=== PATIENT | male | born 1985 | race Caucasian/White ===

== ENCOUNTER 2024-03-04 20:00 | Outpatient (CLI) | payer OTHER, SELFPAY | END 2024-03-04 20:01 | disposition home or self-care (01) | LOC: SLEEP 22:23 | PROVIDERS: Family Provider Internal Medicine; Visit Provider Family Medicine | DX: R06.83 Snoring (principal); R53.83 Other fatigue | CPT/HCPCS: 95810 ==

== ENCOUNTER 2024-08-25 09:27 | Outpatient (CLI) | payer OTHER, SELFPAY ==
--- NOTE | 2024-08-25 08:00 | MR_ITS ---
WS: [id number] MRI LEFT KNEE NONCONTRAST TECHNIQUE: Axial PD, coronal PD fat sat, coronal PD, sagittal PD, and sagittal PD fat-sat images obtained. CLINICAL INFORMATION: INTERNAL DERANGEMENT, KNEE, LEFT COMPARISON: None. FINDINGS: Distal quadriceps and patella tendons are intact. Normal ACL and PCL. Medial and lateral meniscus appear intact. No acute appearing meniscal tears. No significant joint effusion. Fibular head is normal in appearance. Normal bone marrow signal in the femoral condyles and tibial plateau. Normal popliteal fossa. Normal medial and lateral collateral ligaments. Normal popliteus. No other remarkable findings. MR/MR knee LT wo con* [id number] IMPRESSION: 1. ACL and PCL appear intact. 2. Normal patella. 3. No acute appearing meniscal tears. 4. Medial and lateral collateral ligaments appear intact. 5. No other acute findings. Outbridge grading: grade I: focal areas of hyperintensity with normal contour
== END 2024-08-25 09:28 | disposition home or self-care (01) ==
LOC: RAD 09:29
PROVIDERS: Family Provider Internal Medicine; Visit Provider Orthopaedic Surgery
DX: M25.562 Pain in left knee (principal)
CPT/HCPCS: 73721

== ENCOUNTER → 2025-03-03 08:09 | Outpatient (BNVA) | payer OTHER, SELFPAY | PROVIDERS: Family Provider Internal Medicine; Referring Provider Nurse Practitioner Family; Visit Provider Nurse Practitioner Family | DX: B36.0 Pityriasis versicolor (principal); D22.5 Melanocytic nevi of trunk; L82.1 Other seborrheic keratosis; L57.8 Other skin changes due to chronic exposure to nonionizing radiation | CPT/HCPCS: 99203 ==